=== PATIENT | female | born 1955 ===

== ENCOUNTER 2021-02-16 07:05 | Day surgery (SDC) | payer OTHER | END 2021-02-16 15:10 | disposition home or self-care (01) | LOC: AMB-ENDOS 07:05 → CIR.AMB 14:15 → AMB-ENDOS 15:10 | PROVIDERS: ATTEND Colon & Rectal Surgery | DX: D12.0 Benign neoplasm of cecum (principal); D12.8 Benign neoplasm of rectum; K64.8 Other hemorrhoids; Z20.822 Contact with and (suspected) exposure to COVID-19 ==